=== PATIENT | male | born 1975 | race Caucasian/White ===

== ENCOUNTER 2017-08-23 08:51 | Emergency (ER) | payer BC ==
[2017-08-23 09:11] VITALS: BP 188/105
[2017-08-23] MEDS ORDERED: Ketorolac 60 MG/2 ML SDV IM ONE (10:03)
[2017-08-23] MEDS ORDERED: Ondansetron 4 MG Tab.DIS PO ONE (10:43)
--- NOTE | 2017-08-23 10:45 | EDM.PDOC ---
ED HPI GENERAL MEDICAL PROBLEM - General Chief Complaint: Genitourinary Problem Stated Complaint: KIDNEY STONES Time Seen by Provider: 08/23/17 10:03 Source of Information: Reports: Patient, RN Notes Reviewed History Limitations: Reports: No Limitations - History of Present Illness INITIAL COMMENTS - FREE TEXT/NARRATIVE: 42-year-old gentleman presents emergency department today with complaint of right flank pain, he has a known history of kidney stones probably secondary to soda pop, he states this particular event started 7:30 this morning sharp pain very intense and then will relax he can feel it migrating down his right flank does have nausea no vomiting Right Flank Pain Score (Numeric/FACES): 10 - Related Data Allergies Allergy/AdvReac Type Severity Reaction Status Date / Time Penicillins Allergy Hives Verified 08/23/17 10:24 shellfish derived Allergy itchy Verified 08/23/17 10:25 throat Home Meds: Home Meds NK [No Known Home Meds] 08/23/17 [History] Past Medical History Genitourinary History: Reports: Renal Calculus Social & Family History - Tobacco Use Smoking Status *Q: Never Smoker ED ROS GENERAL - Review of Systems Review Of Systems: See Below Constitutional: Reports: No Symptoms HEENT: Reports: No Symptoms Respiratory: Reports: No Symptoms Cardiovascular: Reports: No Symptoms GI/Abdominal: Reports: Nausea : Reports: Flank Pain, Hematuria ED EXAM, RENAL/ - Physical Exam Exam: See Below Exam Limited By: No Limitations General Appearance: Alert, Mild Distress Respiratory/Chest: No Respiratory Distress, Lungs Clear, Normal Breath Sounds, No Accessory Muscle Use Cardiovascular: Regular Rate, Rhythm, No Murmur GI/Abdominal: Soft, No Organomegaly, No Distention, No Abnormal Bruit, Tender ( Right flank area) Course - Vital Signs Last Recorded V/S: Last Vital Signs Temp 94.8 F L 08/23/17 09:25 Pulse 57 L 08/23/17 09:25 Resp 20 08/23/17 09:25 BP 188/105 H 08/23/17 09:25 Pulse Ox 97 08/23/17 09:25 - Orders/Labs/Meds Labs: Laboratory Tests 08/23/17 Range/Units 09:27 Urine Color Red Urine Appearance Cloudy Urine pH 5.0 (4.5-8.0) Ur Specific [place] 1.025 (1.008-1.030) Urine Protein 30 H (NEGATIVE) mg/dL Urine Glucose (UA) Normal (NEGATIVE) mg/dL Urine Ketones Negative (NEGATIVE) mg/dL Urine Occult Blood Large (NEGATIVE) Urine Nitrite Negative (NEGAITVE) Urine Bilirubin Negative (NEGATIVE) Urine Urobilinogen 1 (NORMAL) mg/dL Ur Leukocyte Esterase Negative (NEGATIVE) Urine RBC Semi-packed H (0-5) Urine WBC 5-10 H (0-5) Ur Epithelial Cells Few Amorphous Sediment Few Urine Bacteria Few Urine Mucus Few Urine Other Meds: Medications Discontinued Medications Generic Name Dose Route Start Last Admin Trade Name Blanca PRN Reason Stop Dose Admin Ketorolac Tromethamine 60 mg 08/23/17 10:03 08/23/17 10:26 Toradol IM 08/23/17 10:04 60 mg ONETIME ONE Administration Ondansetron HCl 4 mg 08/23/17 10:43 08/23/17 10:51 Zofran Odt PO 08/23/17 10:44 4 mg ONETIME ONE Administration Departure - Departure Time of Disposition: 11:33 Disposition: Home, Self-Care 01 Condition: Good Clinical Impression: Right flank pain - Discharge Information Referrals: PCP,None [Primary Care Provider] - Forms: ED Department Discharge Additional Instructions: Push fluids, use Percocet as needed for pain control in combination with ibuprofen, use Zofran as needed for nausea and vomiting symptoms, Please followup with your primary care provider in 5-7 days if not better, please call return to the emergency department with worsening of symptoms. - Assessment/Plan Plan: Assessment Acuity = acute Site and laterality = right flank pain with hematuria Etiology = probable nephrolithiasis Manifestations = none Location of injury = Home Lab values = urinalysis reveals packed red blood cells consistent hematuria Plan I did review lab work with him he had good relief from the Toradol injection I offered him to CAT scan for further diagnosis he declined at this time plan is to use Percocet 5/325 total #20 every 6 hours when necessary as needed for pain control push fluids and he will follow-up with his primary care in 5-7 days if no improvement, also Zofran 4 mg ODT Q8 hours when necessary total #10 Patient was in agreement with the plan all questions were answered, they were instructed to return to the emergency department or call for worsening symptoms. This note was dictated using [employer] voice recognition software please call with any questions.
== END 2017-08-23 11:44 | disposition home or self-care (01) ==
LOC: JP.ED 08:51
DX: R10.9 Unspecified abdominal pain (principal); R31.9 Hematuria, unspecified; Z88.0 Allergy status to penicillin; Z91.013 Allergy to seafood; Z87.442 Personal history of urinary calculi
CPT/HCPCS: 81001; 96372; 99284; A9270; J1885

== ENCOUNTER 2019-05-16 11:02 | Emergency (ER) | payer BC ==
[2019-05-16 11:20] VITALS: BP 185/91
[2019-05-16] MEDS ORDERED: Ketorolac 30 MG/ML SDV IVPUSH ONE (11:38)
[2019-05-16] MEDS ORDERED: Ondansetron 4 MG/2 ML SDV IVPUSH ONE (11:38)
--- NOTE | 2019-05-16 11:43 | EDM.PDOC ---
ED HPI GENERAL MEDICAL PROBLEM - General Chief Complaint: Genitourinary Problem Stated Complaint: POSSIBLE KIDNEY STONES Time Seen by Provider: 05/16/19 11:17 Source of Information: Reports: Patient History Limitations: Reports: No Limitations - History of Present Illness INITIAL COMMENTS - FREE TEXT/NARRATIVE: 43 yo male presents with right sided flank pain. has hx of kidney stones last being 2 years ago. Chills, nausea when pain is severe. generally healthy - Related Data Allergies Allergy/AdvReac Type Severity Reaction Status Date / Time Penicillins Allergy Hives Verified 05/16/19 11:13 shellfish derived Allergy itchy Verified 05/16/19 11:13 throat Home Meds: Home Meds NK [No Known Home Meds] 08/23/17 [History] Past Medical History Genitourinary History: Reports: Renal Calculus ED ROS GENERAL - Review of Systems Review Of Systems: See Below Constitutional: Reports: Chills. Denies: Fever, Fatigue Respiratory: Denies: Shortness of Breath, Wheezing Cardiovascular: Denies: Chest Pain GI/Abdominal: Reports: Nausea. Denies: Constipation, Diarrhea, Vomiting : Reports: Flank Pain Skin: Denies: Rash ED EXAM, GI/ABD - Physical Exam Exam: See Below Exam Limited By: No Limitations General Appearance: Alert, WD/WN, No Apparent Distress Respiratory/Chest: No Respiratory Distress, Lungs Clear, Normal Breath Sounds, No Accessory Muscle Use, Chest Non-Tender. No: Crackles, Rhonchi, Wheezing Cardiovascular: Normal Peripheral Pulses, Regular Rate, Rhythm, No Edema GI/Abdominal Exam: Normal Bowel Sounds, Soft, Non-Tender, No Distention (Male) Exam: No: Urethral Discharge Back Exam: Full Range of Motion, CVA Tenderness (R) Neurological: Alert, Oriented Psychiatric: Normal Affect, Normal Mood Skin Exam: Warm, Dry, Intact Course - Vital Signs Last Recorded V/S: Last Vital Signs Temp 35.7 C 05/16/19 11:17 Pulse 49 L 05/16/19 11:17 Resp 14 05/16/19 11:17 BP 185/91 H 05/16/19 11:17 Pulse Ox 98 05/16/19 11:17 - Orders/Labs/Meds Orders: Active Orders 24 hr Category Date Time Status Sodium Chloride 0.9% [Normal Saline] 1,000 ml Med 05/16/19 11:45 Active IV ASDIRECTED Sodium Chloride 0.9% [Normal Saline] 1,000 ml Med 05/16/19 13:15 Active IV ASDIRECTED Medication Orders Sodium Chloride (Normal Saline) 1,000 mls @ 999 mls/hr IV ASDIRECTED NICHELLE Last Admin: 05/16/19 11:50 Dose: 999 mls/hr Sodium Chloride (Normal Saline) 1,000 mls @ 999 mls/hr IV ASDIRECTED NICHELLE Last Admin: 05/16/19 13:32 Dose: 999 mls/hr Labs: Laboratory Tests 05/16/19 Range/Units 11:37 Urine Color Yellow Urine Appearance Slightly cloudy Urine pH 7.0 (4.5-8.0) Ur Specific [place] 1.015 (1.008-1.030) Urine Protein 30 H (NEGATIVE) mg/dL Urine Glucose (UA) Normal (NEGATIVE) mg/dL Urine Ketones Negative (NEGATIVE) mg/dL Urine Occult Blood Moderate (NEGATIVE) Urine Nitrite Negative (NEGAITVE) Urine Bilirubin Negative (NEGATIVE) Urine Urobilinogen Normal (NORMAL) mg/dL Ur Leukocyte Esterase Negative (NEGATIVE) Urine RBC 5-10 H (0-5) Urine WBC Not seen (0-5) Ur Epithelial Cells Not seen Amorphous Sediment Moderate Urine Bacteria Not seen Urine Mucus Rare Meds: Medications Generic Name Dose Route Start Last Admin Trade Name Freq PRN Reason Stop Dose Admin Sodium Chloride 1,000 mls @ 999 mls/hr 05/16/19 11:45 05/16/19 11:50 Normal Saline IV 999 mls/hr ASDIRECTED NICHELLE Administration Sodium Chloride 1,000 mls @ 999 mls/hr 05/16/19 13:15 05/16/19 13:32 Normal Saline IV 999 mls/hr ASDIRECTED NICHELLE Administration Discontinued Medications Generic Name Dose Route Start Last Admin Trade Name Freq PRN Reason Stop Dose Admin Hydrocodone Bitart/Acetaminophen 1 tab 05/16/19 13:02 05/16/19 13:31 [place] 325-5 Mg PO 05/16/19 13:03 1 tab ONETIME ONE Administration Ketorolac Tromethamine 30 mg 05/16/19 11:38 05/16/19 11:53 Toradol IVPUSH 05/16/19 11:39 30 mg ONETIME ONE Administration Ondansetron HCl 4 mg 05/16/19 11:38 05/16/19 11:53 Zofran IVPUSH 05/16/19 11:39 4 mg ONETIME ONE Administration - Re-Assessments/Exams Free Text/Narrative Re-Assessment/Exam: 05/16/19 13:32 pt does have a 10 mm right stone right mid ureter with a smaller stone just superior measuring 4 mm. pt also has incidental finding of 7 mm pulmonary lung nodule. Departure - Departure Time of Disposition: 13:41 Disposition: Home, Self-Care 01 Condition: Good Clinical Impression: Kidney stone on right side, Lung nodule < 6cm on CT - Discharge Information *PRESCRIPTION DRUG MONITORING PROGRAM REVIEWED*: Not Applicable *COPY OF PRESCRIPTION DRUG MONITORING REPORT IN PATIENT FAHAD: Not Applicable Instructions: Kidney Stones, [id number] Referrals: PCP,None [Primary Care Provider] - Forms: ED Department Discharge Additional Instructions: [facility] in [place] will be calling you tomorrow for urology appt regarding your kidney stone if you do not hear from them by 3:00 call [phone] Keep fluid intake high with goal of 1.5 liters per day etodolac 400 mg every 6 hours for pain norco every 6 hours for sever pain [place] is an opiate and may effect your judgement, do not mix with alcohol or you could stop breathing A lung nodule was incidentally found of you CT it is in the right lower lobe and is 7 mm big. This will need to be follow-up on with a primary care provider - My Orders Last 24 Hours: My Active Orders 05/16/19 11:45 Sodium Chloride 0.9% [Normal Saline] 1,000 ml IV ASDIRECTED 05/16/19 13:15 Sodium Chloride 0.9% [Normal Saline] 1,000 ml IV ASDIRECTED - Assessment/Plan Last 24 Hours: My Active Orders 05/16/19 11:45 Sodium Chloride 0.9% [Normal Saline] 1,000 ml IV ASDIRECTED 05/16/19 13:15 Sodium Chloride 0.9% [Normal Saline] 1,000 ml IV ASDIRECTED
[2019-05-16] MEDS ORDERED: Sodium Chloride 0.9% 1,000 ML IV SCH ×2 (11:45→13:15)
--- NOTE | 2019-05-16 12:43 | CRLCT ---
INDICATION: Flank pain. TECHNIQUE: Multiple axial images were obtained from the diaphragm to the symphysis pubis without contrast. Sagittal and coronal re-formatted was were obtained. COMPARISON: None. FINDINGS: There is a 0.7 cm pulmonary nodule in the right lower lobe on image #7 of series 2. The liver, spleen, pancreas, gallbladder and adrenal glands are of unremarkable nonenhanced CT appearance. There is 0.3 cm stone upper pole of the right kidney and a 2nd punctate stone lower pole right kidney. There is moderate right hydronephrosis and hydroureter with a 1 cm stone in the proximal to mid right ureter. There is a 2nd stone just superior to this measuring 0.4 cm. There is no stone identified in the left kidney. There is no left hydronephrosis or stone in the left ureter. There is no evidence of a bowel obstruction. The appendix is visualized in the right mid abdomen and is unremarkable. The abdominal aorta is normal in caliber. There is no adenopathy seen. There is no free fluid the pelvis. IMPRESSION: Two stones in the proximal to mid right ureter larger measuring t 1 cm causing moderate right hydronephrosis. Right kidney stones. 0.7 cm pulmonary nodule right lower lobe. Recommend follow up per the Fleischner society guidelines as described below. FLEISCHNER SOCIETY GUIDELINES - SOLID NODULES: SINGLE LOW RISK - nodule less than 6 mm: No routine follow-up. - nodule 6-8 mm: CT at 6-12 months, then consider CT at 18-24 months. - nodule greater than 8 mm: Consider CT at 3 months, PET/CT or tissue sampling. SINGLE HIGH RISK - nodule less than 6 mm: Optional CT at 12 months. - nodule 6-8 mm: CT at 6-12 months, then CT at 18-24 months. - nodule greater than 8 mm: Consider CT at 3 months, PET/CT or tissue sampling. MULTIPLE LOW RISK - nodule less than 6 mm: No routine follow-up. - nodule 6-8 mm: CT at 3-6 months, then consider CT at 18-24 months. - nodule greater than 8 mm: CT at 3-6 months, then consider CT at 18-24 months. MULTIPLE HIGH RISK - nodule less than 6 mm: Optional CT at 12 months. - nodule 6-8 mm: CT at 3-6 months, then at 18-24 months. - nodule greater than 8 mm: CT at 3-6 months, then at 18-24 months. Dictated by Newton Urbina MD @ 05/16/2019 12:43:06 PM Please note that all CT scans at this facility use dose modulation, iterative reconstruction, and/or weight-based dosing when appropriate to reduce radiation dose to as low as reasonably achievable. Dictated by: Newton Urbina MD @ 05/16/2019 12:43:11 (Electronically Signed)
[2019-05-16] MEDS ORDERED: Acetaminophen/HYDROcodone 325-5 MG Tab PO ONE (13:02)
== END 2019-05-16 14:21 | disposition home or self-care (01) ==
LOC: JP.ED 11:02
DX: N13.2 Hydronephrosis with renal and ureteral calculous obstruction (principal); Z88.0 Allergy status to penicillin; Z91.013 Allergy to seafood
CPT/HCPCS: 74176; 81001; 96361; 96374; 96375; 99284; A9270; J1885; J2405; J7030

== ENCOUNTER 2021-04-15 10:42 | Emergency (ER) | payer BC ==
[2021-04-15 11:00] VITALS: PULSE 59
[2021-04-15 11:11] VITALS: BP 162/98
--- NOTE | 2021-04-15 11:25 | EDM.PDOC ---
ED HPI GENERAL MEDICAL PROBLEM - General Chief Complaint: Lower Extremity Injury/Pain Stated Complaint: RT FOOT/ANKLE PAIN Time Seen by Provider: 04/15/21 11:10 Source of Information: Reports: Patient, Family, RN Notes Reviewed History Limitations: Reports: No Limitations - History of Present Illness INITIAL COMMENTS - FREE TEXT/NARRATIVE: Bharat presents today for complaints of right foot pain. He states about a week ago he twisted his foot in his yard in a dip in the grass. His right foot twisted inward. He reports now there is pain to the lateral aspect of the foot radiating to the heel. He denies any other injuries, fever, chills, nausea, vomiting, change in bowel/bladder or other concerns. He has tried use of ibuprofen 400mg PO and tylenol for pain with minimal relief. - Related Data Allergies Allergy/AdvReac Type Severity Reaction Status Date / Time Penicillins Allergy Hives Verified 04/15/21 10:58 shellfish derived Allergy itchy Verified 04/15/21 10:58 throat Home Meds: Home Meds NK [No Known Home Meds] 08/23/17 [History] Past Medical History Genitourinary History: Reports: Renal Calculus Musculoskeletal History: Reports: None - Infectious Disease History Infectious Disease History: Reports: Chicken Pox - Past Surgical History Musculoskeletal Surgical History: Reports: None Social & Family History - Tobacco Use Tobacco Use Status *Q: Current Every Day Tobacco User Years of Tobacco use: 20 Packs/Tins Daily: 1 Used Tobacco, but Quit: No - Caffeine Use Caffeine Use: Reports: Coffee, Soda - Recreational Drug Use Recreational Drug Use: No Review of Systems - Review of Systems Review Of Systems: See Below Constitutional: Reports: No Symptoms Eyes: Reports: No Symptoms Ears: Reports: No Symptoms Nose: Reports: No Symptoms Mouth/Throat: Reports: No Symptoms Respiratory: Reports: No Symptoms Cardiovascular: Reports: No Symptoms GI/Abdominal: Reports: No Symptoms Genitourinary: Reports: No Symptoms Musculoskeletal: Reports: Foot Pain (right foot pain for 7 days after stepping in low spot of yard and twisting foot. ) Skin: Reports: No Symptoms Neurological: Reports: No Symptoms Psychiatric: Reports: No Symptoms ED EXAM, GENERAL - Physical Exam Exam: See Below Exam Limited By: No Limitations General Appearance: Alert, WD/WN, Mild Distress Head: Atraumatic, Normocephalic Neck: Normal Inspection, Supple, Non-Tender, Full Range of Motion. No: Lymphadenopathy (R), Lymphadenopathy (L) Respiratory/Chest: No Respiratory Distress, Lungs Clear, Normal Breath Sounds, No Accessory Muscle Use, Chest Non-Tender. No: Crackles, Rales, Rhonchi, Wheezing Cardiovascular: Normal Peripheral Pulses, Regular Rate, Rhythm, No Edema, No Gallop, No Murmur, No Rub Peripheral Pulses: 3+: Dorsalis Pedis (L), Dorsalis Pedis (R) Back Exam: Normal Inspection, Full Range of Motion. No: CVA Tenderness (R), CVA Tenderness (L) Extremities: Normal Range of Motion, Non-Tender, No Pedal Edema, Normal Capillary Refill, Other (trace edema dorsum right foot, no other edema noted. ) Neurological: Alert, Oriented, Normal Cognition, Normal Gait, Normal Reflexes, No Motor/Sensory Deficits Psychiatric: Normal Affect, Normal Mood Skin Exam: Warm, Dry, Intact, Normal Color, No Rash. No: Ecchymosis, Erythema, Increased Warmth, Petechiae, Rash Lymphatic: No Adenopathy Course - Vital Signs Last Recorded V/S: Last Vital Signs Temp 36.0 C L 04/15/21 11:07 Pulse 59 L 04/15/21 11:07 Resp 18 04/15/21 11:07 BP 162/98 H 04/15/21 11:07 Pulse Ox 95 04/15/21 11:07 - Orders/Labs/Meds Orders: Active Orders 24 hr Category Date Time Status Foot Comp Min 3V Rt [CR] Stat Exams 04/15/21 11:13 Taken - Radiology Interpretation Free Text/Narrative:: right foot x-ray wet read, reviewed, shows no acute findings. - Re-Assessments/Exams Free Text/Narrative Re-Assessment/Exam: Patient x-ray reviewed with him and his , all their questions were answered. They are in agreement with plan. Desmond wrap, NSAID, tylenol and follow up with podiatry. Departure - Departure Time of Disposition: 11:50 Disposition: Home, Self-Care 01 Condition: Good Clinical Impression: Sprain of foot, right - Discharge Information *PRESCRIPTION DRUG MONITORING PROGRAM REVIEWED*: No *COPY OF PRESCRIPTION DRUG MONITORING REPORT IN PATIENT FAHAD: No Instructions: Foot Sprain Referrals: PCP,None [Primary Care Provider] - Forms: ED Department Discharge Additional Instructions: You have been evaluated and treated for right foot sprain. There were no acute findings on the x-ray. Radiologist read pending. Rest, ice, use fo desmond wrap and elevation to help with the pain. Take naproxen 500mg twice a day with food for pain. You can also take acetaminophen (tylenol) 1000mg three times a day for pain. Follow up with Dr. Villa podiatry for further care. Return for any worsening, issues or concerns. Sepsis Event Note (ED) - Evaluation Sepsis Screening Result: No Definite Risk - Focused Exam Vital Signs: Vital Signs Temp Pulse Resp BP Pulse Ox 04/15/21 11:07 36.0 C L 59 L 18 162/98 H 95 04/15/21 10:58 36.0 C L 59 L 18 95 - My Orders Last 24 Hours: My Active Orders 04/15/21 11:13 Foot Comp Min 3V Rt [CR] Stat - Assessment/Plan Last 24 Hours: My Active Orders 04/15/21 11:13 Foot Comp Min 3V Rt [CR] Stat Assessment:: Sprain of foot Right Plan: Patient been evaluated and treated for right foot sprain. There were no acute findings on the x-ray. Radiologist read pending. Rest, ice, use fo desmond wrap and elevation to help with the pain. Take naproxen 500mg twice a day with food for pain. He can also take acetaminophen (tylenol) 1000mg three times a day for pain. Follow up with Dr. Villa podiatrterrence for further care, referral placed. Return for any worsening, issues or concerns.
--- NOTE | 2021-04-16 16:03 | CR ---
FOOT RIGHT 3 views CLINICAL HISTORY:Trauma FINDINGS:There is no fracture or dislocation. There is a calcaneal spur. There is mild hammertoe deformity at the fifth toe. Impression: No fracture Small calcaneal spur
== END 2021-04-15 12:03 | disposition home or self-care (01) ==
LOC: JP.ED 10:42
DX: S93.601A Unspecified sprain of right foot, initial encounter (principal); Z88.0 Allergy status to penicillin; Z91.013 Allergy to seafood; Z72.0 Tobacco use; X50.1XXA Overexertion from prolonged static or awkward postures, initial encounter
CPT/HCPCS: 73630-26-RT; 73630-RT; 99283